=== PATIENT | male | born 1950 | race Caucasian/White ===

== ENCOUNTER 2016-12-24 20:22 | Inpatient (IN) | payer OTHER, MEDICARE ==
[~2016-12-24] VITALS: Ht 185.4 cm; Wt 104.8 kg
[~2016-12-24 20:22] MED LIST: LABETALOL HYDR200 MG PO; NORVASC 10MG10 MG PO
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
[2016-12-24] MEDS ORDERED: CLOPIDOGREL75 M1 PO (20:42)
[2016-12-24] MEDS ORDERED: METOPROLOL TART25 M1 PO (20:43)
[2016-12-24] MEDS ORDERED: LISINOPRIL40 M1 PO (20:43)
[2016-12-24 20:45] LABS: ABSOLUTE BASOPHIL COUNT 0.1 /CUMM (0.0-0.2); ABSOLUTE EOSINOPHIL COUNT 0.2 /CUMM (0.0-0.7); ABSOLUTE GRANULOCYTE CT 5.9 /CUMM (1.4-6.5); ABSOLUTE LYMPH COUNT 2.2 /CUMM (1.2-3.4); ABSOLUTE MONOCYTE COUNT 0.6 /CUMM (0.10-0.60); EOSINOPHIL % 1.8 % (0-5); GRANULOCYTE % 66.2 % (42.2-75.2); HEMATOCRIT 50.6 % (42-52); MEAN CORPUSCULAR HGB 31.1 PG (27.0-31.0); MEAN CORPUSCULAR HGB CONC 33.4 G/DL (33.0-37.0); MEAN CORPUSCULAR VOLUME 93.1 FL (80.0-94.0); MEAN PLATELET VOLUME 7.2 FL (7.4-10.4); PLATELET COUNT 235 /CUMM (130-400); RBC DISTRIBUTION WIDTH 14.3 % (11.5-14.5); RED BLOOD CELL CT 5.43 /CUMM (4.70-6.10); WHITE BLOOD CELL COUNT 8.8 /CUMM (4.8-10.8)
[2016-12-24 20:50] LABS: PT 11.9 SEC (9.4-12.5)
--- NOTE | 2016-12-24 21:49 | CT SCAN REPORT ---
EXAMINATION: CT HEAD WITHOUT CONTRAST CLINICAL INFORMATION: Expressive aphasia COMPARISON: CT 01/14/2009 TECHNIQUE: Contiguous axial imaging was performed from the skull base to vertex without intravenous administration of contrast. DLP: 701.9 mGy-cm FINDINGS: There is no evidence of acute intracranial hemorrhage or territorial infarction. No abnormal mass effect or midline shift is seen. العلي to white matter differentiation is well preserved. No extra-axial fluid collections are identified. Compared to the 2009 study there is marked dilatation of the lateral ventricles bilaterally. The third ventricle is also increased in size compared to the prior study. The fourth ventricle appears relatively similar and caliber. There is new diffuse prominence of the sulci. The sulci within the frontal lobes are the most prominent and unchanged compared to prior study. There are moderate calcifications involving the vertebral arteries bilaterally as well as the cavernous portions of the carotid arteries.. There is no abnormal attenuation within the brain parenchyma. The osseous structures and soft tissues are normal. The mastoid air cells and visualized portions of the paranasal sinuses are well aerated. IMPRESSION: 1. Marked interval increase in dilatation of the lateral and third ventricles compared to 2009 in combination with prominence of the sulci within the frontal lobes. 2. No acute intracranial hemorrhage.
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
[2016-12-24] MEDS ORDERED: ATORVASTATIN CA40 M1 PO (23:32)
[2016-12-25 00:58] VITALS: BP 174/100
--- NOTE | 2016-12-25 05:13 | Admission Certification ---
Admission Certification Certification Statement - As attending physician, I certify that at the time of - admission, based on clinical presentation, severity of - symptoms, need for further diagnostic testing and - therapeutic interventions, and risk of adverse outcomes - without in-hospital treatment, in my clinical assessment, - this patient requires an acute hospital stay for a minimum - of two nights or longer. I have also considered psychsocial - factors such as support system, advanced age, financial - issues, cognitive issues, and failed out-patient treatments, - past re-admission history, safety of patient, and lack of - compliance as applicable. Specific rationale supporting this admission is: Expressive aphagia
[2016-12-25 08:23] VITALS: BP 138/92
[2016-12-25 08:35] LABS: ABSOLUTE BASOPHIL COUNT 0 /CUMM (0.0-0.2); ABSOLUTE EOSINOPHIL COUNT 0.2 /CUMM (0.0-0.7); ABSOLUTE GRANULOCYTE CT 6.2 /CUMM (1.4-6.5); ABSOLUTE LYMPH COUNT 2.2 /CUMM (1.2-3.4); ABSOLUTE MONOCYTE COUNT 0.6 /CUMM (0.10-0.60); BASOPHIL % 0.5 % (0.0-2.0); EOSINOPHIL % 1.8 % (0-5); GRANULOCYTE % 67.2 % (42.2-75.2); HEMATOCRIT 49.8 % (42-52); MEAN CORPUSCULAR HGB 31.1 PG (27.0-31.0); MEAN CORPUSCULAR HGB CONC 33.3 G/DL (33.0-37.0); MEAN CORPUSCULAR VOLUME 93.4 FL (80.0-94.0); MEAN PLATELET VOLUME 7.8 FL (7.4-10.4); PLATELET COUNT 195 /CUMM (130-400); RBC DISTRIBUTION WIDTH 14.6 % (11.5-14.5); RED BLOOD CELL CT 5.34 /CUMM (4.70-6.10); WHITE BLOOD CELL COUNT 9.2 /CUMM (4.8-10.8)
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
--- NOTE | 2016-12-25 15:19 | Event Note ---
See Addendum Event Note Event Note: I was called by floor nurse Savanna chest is around 3 PM that Mr. Alexander Basruto wants to leave AGAINST MEDICAL ADVICE and wants to take his IV out and ready to go. I went to see the patient at bedside where he was standing, ready to go and person from bottle carrier/spiritual care was also present in the room. I explained in detail about the consequences of leaving againt medical advice and patient was understanding/comprehending all my conversation but due to underlying expressive aphasia mostly his answers were na na na or madeleine. When I asked him that we are very much concerned about his current status and worried that he might get in trouble and endanger his health and life if leave AGAINST MEDICAL ADVICE but he firmerly refused to stay and said he is okay and have no problem. When I asked him that if he knows where he is he said [facility] and is upstairs but when he was given options to [facility] from [facility] he said hospital. When I asked him where he wants to go he gave me his home address which was correct. I requested him if he could wait and I will call his sister, which I tried to contact around 3:10 PM but was on voicemail. I tried multiple times later on. Attending Sammie Horn MD was informed and I explained all situation and came to the floor. As patient was at his baseline according to family on admission and able to understand current situation as well as consequences of leaving AGAINST MEDICAL ADVICE she agrees that he can leave AMA. He was trying to take out his IVs but was not aggressive and stayed calm throughout the conversation and wait for nurse later who took out IV by herself. When I asked him that if he wants to leave AGAINST MEDICAL ADVICE he has to sign paperwork which he agreed and signed. He was very steady on his gait. After 10 minutes his family arrived and were concerned but understood that we could not hold patient against his wishes. ict help desk officer was contacted and patient was seen going out when he waved and said goodbye , security was also contacted if they can help with finding patient to family in the premises. Nursing shipfitters supervisor was also aware of the situation.
--- NOTE | 2016-12-26 13:43 | Event Note ---
Event Note Event Note: Spoke to Dr Gibbs about the patient leaving AMA. As per Dr Gibbs, patient has not seen her since 2011. She will try her best to contact the patient/family for a follow up outpatient appointment. All this was discussed with Tiffanie Gamez and social problems specialist Heidy.
--- NOTE | 2017-01-04 17:26 | Discharge Summary ---
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 He is admitted for possible acute ischemic event. 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 Per the family he also has become forgetful, he has a FH significant for Alzheimer's disease in the mother. CT scan of the head shows 'marked interval increase in dilatation of the lateral and third ventricles compared to 2009 in combination with prominence of the sulci within the frontal lobes. The plan was to order MRI, EEG and neurological consult however he left AMA. For Possible acute worsening of dementia: Per family (sister, Emily) patient has been having memory deficits for 6-8 months now. He also has positive FH for AD. TSH, folate, and B12 was within normal limits. History of CAD, HTN, HLD: We continue plavix 75 mg daily, metoprolol 12.5 mg daily, lisinopril 40 mg daily, and Atorvastatin. Allergies: Coded Allergies: No Known Allergies (12/24/16) Pertinent Lab Results: SERVICE DATE: 12/24/16 EXAM TYPE: CAT - CT HEAD WO IV CONTRAST EXAMINATION: CT HEAD WITHOUT CONTRAST CLINICAL INFORMATION: Expressive aphasia COMPARISON: CT 01/14/2009 TECHNIQUE: Contiguous axial imaging was performed from the skull base to vertex without intravenous administration of contrast. DLP: 701.9 mGy-cm FINDINGS: There is no evidence of acute intracranial hemorrhage or territorial infarction. No abnormal mass effect or midline shift is seen. العلي to white matter differentiation is well preserved. No extra-axial fluid collections are identified. Compared to the 2008 study there is marked dilatation of the lateral ventricles bilaterally. The third ventricle is also increased in size compared to the prior study. The fourth ventricle appears relatively similar and caliber. There is new diffuse prominence of the sulci. The sulci within the frontal lobes are the most prominent and unchanged compared to prior study. There are moderate calcifications involving the vertebral arteries bilaterally as well as the cavernous portions of the carotid arteries.. There is no abnormal attenuation within the brain parenchyma. The osseous structures and soft tissues are normal. The mastoid air cells and visualized portions of the paranasal sinuses are well aerated. IMPRESSION: 1. Marked interval increase in dilatation of the lateral and third ventricles compared to 2009 in combination with prominence of the sulci within the frontal lobes. 2. No acute intracranial hemorrhage. Disposition Summary Disposition Principal Diagnosis: TIA vs CVA Additional Diagnosis: HTN HLD Discharge Disposition: left against medical adv Discharge Instructions General Discharge Information Code Status: Full Code Patient's Diet: Heart healthy Patient's Activity: As tolerated Follow-Up Instructions/Appts: f/u with PCP and neurology Copies To: MARGARITA MONIQUE,NANCY; SARAHI MONIQUE,GAIL Gama Attending MD Review Statement Documenting Attending: JAVON MONIQUE,EMILIANO Other Findings: I had seen the patient in the morning, he was awake, alert and oriented. He was just not able to articulate properly because of his aphasia. He was able to tell me his address. He also had an explaination as to why his driving was erratic in the parking lot, he had an issue with his car gear. I did not feel that he was an imminent danger to himself or others. His primary care physician, Dr Gibbs was informed about the patient leaving AMA. As per Dr Gibbs, patient has not seen him since 2011. She will try her best to contact the patient/family for a follow up outpatient appointment. All this was discussed with Tiffanie Gamez and manager social work [place].
== END 2016-12-25 15:00 | disposition left against medical advice (07) | DRG 93 ==
LOC: ERH 20:22 → 1NO 22:26 → ERHI 22:26 → EDBEDREQ 23:44 → ENRESERV 23:47 → 1NO 12-25 00:41
PROVIDERS: Emergency Medicine; Internal Medicine; ADMIT Internal Medicine
DX: R47.01 Aphasia (principal); I10 Essential (primary) hypertension; I25.10 Atherosclerotic heart disease of native coronary artery without angina pectoris; Z95.5 Presence of coronary angioplasty implant and graft; G51.0 Bell's palsy; E78.5 Hyperlipidemia, unspecified; F17.290 Nicotine dependence, other tobacco product, uncomplicated
CPT/HCPCS: ERO; 36415; 80307; 81003; 82436; 87389; 93005; 93010; J1650; J3490